=== PATIENT | female | born 1995 | race Caucasian/White ===

== ENCOUNTER 2017-02-27 21:27 | Emergency (ER) | payer BC ==
[~2017-02-27] VITALS: Ht 175.3 cm; Wt 90.7 kg
[~2017-02-27 21:27] MED LIST: AZIT250T94 PO; D-ME473S2 PO; IBUP-1542 PO
[2017-02-27 21:29] VITALS: Ht 175.3 cm; Wt 90.7 kg
[2017-02-27] MEDS ORDERED: DIPHENHYDRAMINE 50 MG INJ IV ONE (22:00)
[2017-02-27] MEDS ORDERED: FAMOTIDINE 20 MG INJ IV ONE (22:00)
[2017-02-27] MEDS ORDERED: METHYLPREDNISOLONE 125 MG INJ IV ONE (22:00)
[2017-02-27] MEDS ORDERED: ONDANSETRON 4 MG INJ IV STA (22:04)
[2017-02-27] MEDS ORDERED: SOD CHLORIDE 0.9% 1,000 ML IV ONE (22:30)
[2017-02-27] MEDS ORDERED: PRED20TA PO (22:32)
[2017-02-27] MEDS ORDERED: FAMO-96 PO (22:32)
[2017-02-27] MEDS ORDERED: BEN25 PO (22:32)
--- NOTE | 2017-02-27 22:32 | ERD ---
ER Documentation Chief Complaint Chief Complaint Rash to face HPI The patient is a 21-year-old female who presents to the Emergency Department with complaint of a pruritic rash to her face since Saturday. The patient reports that her symptoms began gradually on Saturday, and have persisted and slightly worsened since. She notes presence of a skin-colored, pruritic, maculopapular rash that began on her forehead and cheeks, and have since been spreading, to cover her face and proximal neck. The rash is pruritic, though improved with Benadryl. Last dose of Benadryl was taken this morning. She denies any lip or tongue swelling, throat tightness, shortness of breath, difficulty breathing, wheezing. Denies fevers, sweats, chills, nausea, vomiting. Denies new exposures to new foods, drinks, soaps, detergents, lotions, shampoos, plants, animals. Denies history of similar symptoms. Denies any known drug allergies. Denies any contacts with similar symptoms. Denies recent URI or illnesses. Denies recent antibiotic or new medication use. No other complaints at this time. ROS All systems reviewed and are negative except as per history of present illness. Medications Home Meds Active Scripts Famotidine* (Pepcid*) 20 Mg Tablet, 20 MG PO BID for 4 Days, TAB Prov:LATOSHA DOMÍNGUEZ PA-C 02/27/17 Diphenhydramine Hcl* (Benadryl*) 25 Mg Cap, 25 MG PO Q6H Y for ITCHING, #20 CAP Prov:LATOSHA DOMÍNGUEZ PA-C 02/27/17 Prednisone* (Prednisone*) 20 Mg Tab, 40 MG PO DAILY for 4 Days, TAB Prov:LATOSHA DOMÍNGUEZ PA-C 02/27/17 Dextromethorphan Hb-Promethazine Hcl* (Promethazine DM* Syrup) 473 Ml Syrup, 5 ML PO Q6 Y for COUGH for 4 Days, ML Prov:SRI COE MD 02/02/16 Ibuprofen* (Motrin*) 600 Mg Tab, 600 MG PO Q6, #20 TAB Prov:SRI COE MD 02/02/16 Azithromycin* (Zithromax*) 250 Mg Tablet, 250 MG PO .HusamPACK DIRECTED, #6 TAB TAKE 500 MG (2 TABS) THE FIRST DAY THEN 250 MG (1 TAB) DAYS 2-5 Prov:SRI COE MD 02/02/16 Allergies Allergies: Coded Allergies: No Known Allergy (Unverified , 02/02/16) PMhx/Soc History of Surgery: No Anesthesia Reaction: No Hx Neurological Disorder: No Hx Respiratory Disorders: No Hx Cardiac Disorders: Yes (htn) Hx Psychiatric Problems: No Hx Miscellaneous Medical Probl: No Hx Alcohol Use: No Hx Substance Use: No Hx Tobacco Use: No Smoking Status: Never smoker Physical Exam Vitals Vital Signs Date Time Temp Pulse Resp B/P Pulse Ox O2 Delivery O2 Flow Rate FiO2 02/27/17 22:42 98.3 93 17 118/70 100 Room Air 02/27/17 21:29 97.1 101 20 133/70 100 Physical Exam GENERAL: Well-developed, well-nourished, in no acute distress HEENT: Head is normocephalic, atraumatic. No scleral pallor or icterus. Pupils equal, round and reactive to light. Extraocular movements intact. Conjunctiva pink. Moist mucous membranes. No pharyngeal erythema or exudates. Uvula is midline. Clear oropharynx. No lip or tongue swelling. No pooling of oral secretions. Phonation is normal. No submandibular swelling. No brawny induration. NECK: Supple. No masses, no tenderness, no lymphadenopathy. Trachea midline. No nuchal rigidity. Full range of motion. No crepitus. RESPIRATORY: Lungs are clear to auscultation bilaterally. No rales, rhonchi or wheezing. Equal breath sounds. Normal expiratory effort. CARDIOVASCULAR: Regular rate and rhythm. S1 and S2 normal. No murmurs, rubs, or gallops. GASTROINTESTINAL: Abdomen is soft, nontender, and nondistended. EXTREMITIES: No clubbing, cyanosis, or edema. Normal skin perfusion. Moving all extremities. Muscle tone is normal. No focal swelling or erythema. Distal pulses are palpable, 2+ bilaterally. Capillary refill is less than 2 seconds. NEUROLOGIC: The patient is alert, awake, and oriented x 3. No focal neurologic deficits. INTEGUMENT: Skin is clean, dry and intact. Fine, pruritic maculopapular rash to face and proximal neck. No crepitus. No pain away from site of rash. No skip or target lesions. No skin sloughing. No bullae, vesicles, ulcerations. No mucous membrane involvement. No lesions to hands, feet, palms, soles. No petechiae or purpura. PSYCHIATRIC: Appropriate; Cooperative. Results 24 hrs Current Medications Medications (Trade) Dose Ordered Sig/Mikaela Route PRN Reason Start Time Stop Time Status Last Admin Dose Admin Methylprednisolone Sodium Succinate (Solu-Medrol) 125 mg ONCE ONCE IV 02/27/17 22:00 02/27/17 22:01 DC 02/27/17 21:56 Diphenhydramine HCl (Benadryl) 25 mg ONCE ONCE IV 02/27/17 22:00 02/27/17 22:01 DC 02/27/17 21:56 Famotidine (Pepcid Iv) 20 mg ONCE ONCE IV 02/27/17 22:00 02/27/17 22:01 DC 02/27/17 21:56 Ondansetron HCl 4 mg 4 mg ONCE STAT IV 02/27/17 22:04 02/27/17 22:05 DC 02/27/17 22:11 Sodium Chloride (NS) 1,000 ml @ 1,000 mls/hr Q1H ONCE IV 02/27/17 22:30 02/27/17 22:49 DC 02/27/17 22:11 Procedures/MDM This is a 21-year-old female patient presenting to the Emergency Department with complaint of a new itchy skin rash. The patient had fine maculopapular pruritic rash noted on her face and upper neck. However, the patient's oropharynx and airway were patent, and exhibited no breathing difficulties, wheezing, tongue swelling or lip swelling. No evidence of angioedema, airway compromise, inability to handle oral secretions or stridor. Patient's phonation was normal. No wheezing auscultated on physical examination. Circulation was appropriate, with no systemic signs of anaphylaxis, no hypotension. No associated purpura or petechiae. The differential diagnosis includes, but is not limited to, allergic reaction, insect bite, fungal infection, cellulitis, MRSA, impetigo, shingles, scabies, bedbug bites, herpes simplex virus, burn, abscess, dermatitis, viral syndrome, candidiasis, medication reaction, Jeffery Don syndrome, epidermolysis bullosa, toxic epidermal necrolysis, meningococcemia, toxic shock syndrome, hand foot and mouth disease, mononucleosis, heat rash. No evidence of crepitus , skip lesions or pain away from site of rash, concerning for necrotizing fasciitis or myositis. No mucosal involvement or appearance concerning for Ismael Don's syndrome or TENS. No airway compromise or concern for anaphylaxis. No indication of angioedema. After rest and administration of Solu-Medrol, Benadryl and Pepcid, the patient has no new complaints, and the patient remains stable with no signs of respiratory distress. Her itching has completely resolved. Upon my review and interpretation of the patient's presentation and overall ER course, I believe the patient's symptoms are most consistent with pruritic skin rash. Suspect possible underlying allergic reaction as etiology. At this time, the patient is in stable condition and therefore can be discharged home with prescriptions for Prednisone, Pepcid and Benadryl, and strict return precautions for signs of deteriorating or worsening condition. She is advised to follow up with her primary care provider and/or sandwich counter attendant/natural resource specialist within 1-2 days for reevaluation and further management, or return to the ER sooner for worsening symptoms. I shared my medical decision making and plan with the patient at length and in great detail, and she verbally understands and agrees with the plan for further observation and care as an outpatient. At the time of discharge all questions were answered. Departure Diagnosis: Primary Impression: Pruritic rash Condition: Stable Patient Instructions: Allergic Reaction, Other (General), Self-Care for Skin Rashes Additional Instructions: Call your primary care doctor TOMORROW for an appointment during the next 1-2 days. You may need to follow up with a dermatology/natural resource specialist for further evaluation. See the doctor sooner or return here if your condition worsens before your appointment time. LATOSHA DOMÍNGUEZ PA-C Feb 27, 2017 22:32
[2017-02-27 22:42] VITALS: BP 118/70; PULSE 93; RESP 17; TEMP 98.3
== END 2017-02-27 22:42 | disposition home or self-care (01) ==
LOC: FTE 21:27
DX: L29.9 Pruritus, unspecified (principal); I10 Essential (primary) hypertension
CPT/HCPCS: 96361; 96374; 96375; 99284; J1200; J2405; J2930; J7030